=== PATIENT | female | born 1995 | race American Indian/Alaskan Native ===

== ENCOUNTER 2017-09-18 15:59 | Emergency (ER) | payer SELFPAY ==
[2017-09-18 18:13] LABS: Bilirubin,Urine NEG (Negative); Blood,Urine SM (Negative); Color,Urine Yellow (Yellow); HCG Qualitative,Urine Negative (Negative); Mucus,Urine 1+ /HPF; Protein,Urine <15 mg/dL mg/dL (Negative); Urobilinogen,Urine < 2.0 mg/dL (<2.0)
[2017-09-18] MEDS ORDERED: TYLENOL PO ONE (20:47)
[2017-09-18] MEDS ORDERED: MOTRIN PO ONE (20:47)
[2017-09-18 21:12] LABS: Alanine Aminotransferase 19 units/L (7-56); Albumin 4.9 g/dL (3.9-5); BUN/Creatinine Ratio 11; Blood Urea Nitrogen 11 mg/dL (7-17); Calcium 9.4 mg/dL (8.4-10.2); Hemolysis Index 10
--- NOTE | 2017-09-18 21:19 | Emergency Department Report ---
ED General Adult HPI - General Chief complaint: Weakness Stated complaint: BAD HEADACHES/NO ENERGY Time Seen by Provider: 09/18/17 20:38 Source: patient Mode of arrival: Ambulatory Limitations: No Limitations - History of Present Illness Initial comments: For the past 3 months, pt has been feeling fatigued with intermittent progressive onset, frontal migraines. Has been out of her thyroid medicine 2/2 loss of insurance for the past 3 months. She has light/sound sensitivity with her migraine. This episode began 3 days ago. Hasn't taken anything for her h/a. Tactile fevers/chills. - Related Data Previous Rx's Medication Instructions Recorded Last Taken Type Levothyroxine [Synthroid] 25 mcg PO QAM #30 tablet 09/18/17 Unknown Rx Allergies Allergy/AdvReac Type Severity Reaction Status Date / Time No Known Allergies Allergy Verified 09/18/17 16:46 ED Review of Systems ROS: Stated complaint: BAD HEADACHES/NO ENERGY Other details as noted in HPI Comment: All other systems reviewed and negative Constitutional: chills, fever, malaise Gastrointestinal: nausea Musculoskeletal: myalgia Neurological: headache ED Past Medical Hx - Past Medical History Previous Medical History?: Yes - Surgical History Past Surgical History?: Yes Additional Surgical History: thryroidectomy - Social History Smoking Status: Current Every Day Smoker Substance Use Type: None - Medications Home Medications: Home Medications Medication Instructions Recorded Confirmed Last Taken Type Levothyroxine [Synthroid] 25 mcg PO QAM #30 tablet 09/18/17 Unknown Rx ED Physical Exam - General Limitations: No Limitations General appearance: alert, in no apparent distress - Head Head exam: Present: atraumatic, normocephalic - Eye Eye exam: Present: normal appearance - ENT ENT exam: Present: normal orophraynx, mucous membranes moist - Neck Neck exam: Present: normal inspection - Respiratory Respiratory exam: Present: normal lung sounds bilaterally. Absent: respiratory distress - Cardiovascular Cardiovascular Exam: Present: regular rate, normal rhythm. Absent: systolic murmur, diastolic murmur, rubs, gallop - GI/Abdominal GI/Abdominal exam: Present: soft, normal bowel sounds. Absent: distended, tenderness, guarding, rebound - Extremities Exam Extremities exam: Present: normal inspection - Back Exam Back exam: Present: normal inspection - Neurological Exam Neurological exam: Present: alert, oriented X3, CN II-XII intact, normal gait. Absent: motor sensory deficit - Psychiatric Psychiatric exam: Present: normal affect, normal mood - Skin Skin exam: Present: warm, dry, intact, normal color. Absent: rash ED Course Vital Signs 09/18/17 09/18/17 09/18/17 16:40 20:30 20:55 Temperature 99.8 F H 98.2 F Pulse Rate 99 H 82 Respiratory 18 11 L 18 Rate Blood Pressure 127/84 121/75 O2 Sat by Pulse 105 H Oximetry 09/18/17 21:55 Temperature Pulse Rate Respiratory 16 Rate Blood Pressure O2 Sat by Pulse Oximetry - Reevaluation(s) Reevaluation #1: h/a improved on recheck. High TSH with a low free t4. Pt has symptomatic hypothyroidism, but is not in crisis. Will restart her home synthroid, 25 mcg daily. She will follow up with the [facility] for further management of her primary hypothryoidism. 09/18/17 22:45 09/18/17 22:49 ED Medical Decision Making - Lab Data Result diagrams: 09/18/17 20:47 - Medical Decision Making 22 yo female with pmhx thryoidectomy, noncomplaint with thyroid meds p/w generalized symptoms and h/a. VSS. Pt is well appearing. No focal neurodeficit. Low suspicion for CVA event. - Differential Diagnosis hypothyroid, tension vs migraine h/a, ICH, meningitis Critical care attestation.: If time is entered above; I have spent that time in minutes in the direct care of this critically ill patient, excluding procedure time. ED Disposition Clinical Impression: Primary hypothyroidism, Headache Disposition: - TO HOME OR SELFCARE Is pt being admited?: No Does the pt Need Aspirin: No Condition: Stable Instructions: Hypothyroidism (ED) Additional Instructions: Please take your synthroid as prescribed. Follow up with the [facility] in the next 1-2 weeks for further management of your hypothryoidism. Take 800 mg motrin and/or 975 mg tylenol every 6 hours as needed for your headache. Prescriptions: Levothyroxine [Synthroid] 25 mcg PO QAM #30 tablet Referrals: PRIMARY CARE, [Primary Care Provider] - 3-5 Days [facility] [Outside] - 3-5 Days
[2017-09-18] MEDS ORDERED: ZOFRAN ODT PO ONE (21:20)
[2017-09-18] MEDS ORDERED: K-DUR PO ONE (21:20)
[2017-09-18] MEDS ORDERED: SYNTHROID PO ONE (22:12)
[2017-09-18 23:12] VITALS: BP 97/53
== END 2017-09-18 23:20 | disposition home or self-care (01) ==
LOC: ED 15:59
DX: E03.8 Other specified hypothyroidism (principal); G43.909 Migraine, unspecified, not intractable, without status migrainosus; F17.200 Nicotine dependence, unspecified, uncomplicated; Z90.89 Acquired absence of other organs
CPT/HCPCS: 36415; 80053; 81001; 81025; 84439; 84443; 99283; Q0162

== ENCOUNTER 2018-12-12 16:56 | Emergency (ER) | payer SELFPAY ==
[2018-12-12 17:09] VITALS: BP 118/55
--- NOTE | 2018-12-12 18:49 | Emergency Department Report ---
ED General Adult HPI - General Chief complaint: Abdominal Pain Stated complaint: COLD SORE, ABDOMINAL PAIN Time Seen by Provider: 12/12/18 18:17 Source: patient Mode of arrival: Ambulatory Limitations: No Limitations - History of Present Illness Initial comments: She denies abdominal pain. States she is only here to be seen for her cold sore. 23-year-old female presents to ED with cold sore to right upper lip 1 week. Patient states she has tried Abreva and tea tree oil however the lesion is still there. Patient states this is her first cold sore. -: week(s) (1) Location: mouth Quality: burning Consistency: constant Improves with: none Worsens with: none Associated Symptoms: denies: fever/chills, nausea/vomiting - Related Data Previous Rx's Medication Instructions Recorded Last Taken Type Levothyroxine [Synthroid] 25 mcg PO QAM #30 tablet 09/18/17 Unknown Rx valACYclovir [Valtrex] 500 mg PO QDAY #30 tab 12/12/18 Unknown Rx Allergies Allergy/AdvReac Type Severity Reaction Status Date / Time No Known Allergies Allergy Verified 09/18/17 16:46 ED Review of Systems ROS: Stated complaint: COLD SORE, ABDOMINAL PAIN Other details as noted in HPI Comment: All other systems reviewed and negative Constitutional: denies: chills, fever ENT: other (reports cold sore on mouth) Gastrointestinal: denies: abdominal pain, nausea, vomiting ED Past Medical Hx - Past Medical History Previous Medical History?: No - Surgical History Past Surgical History?: Yes Additional Surgical History: thryroidectomy - Social History Smoking Status: Current Every Day Smoker Substance Use Type: Alcohol, Marijuana - Medications Home Medications: Home Medications Medication Instructions Recorded Confirmed Last Taken Type Levothyroxine [Synthroid] 25 mcg PO QAM #30 tablet 09/18/17 Unknown Rx valACYclovir [Valtrex] 500 mg PO QDAY #30 tab 12/12/18 Unknown Rx ED Physical Exam - General Limitations: No Limitations General appearance: alert, in no apparent distress - Head Head exam: Present: atraumatic, normocephalic - Eye Eye exam: Present: normal appearance - ENT ENT exam: Present: mucous membranes moist - Neck Neck exam: Present: normal inspection - Respiratory Respiratory exam: Present: normal lung sounds bilaterally. Absent: respiratory distress - Cardiovascular Cardiovascular Exam: Present: regular rate, normal rhythm - GI/Abdominal GI/Abdominal exam: Present: soft. Absent: distended, tenderness - Extremities Exam Extremities exam: Present: normal inspection - Neurological Exam Neurological exam: Present: alert, oriented X3 - Psychiatric Psychiatric exam: Present: normal affect, normal mood - Skin Skin exam: Present: warm, dry, intact, normal color, other (cold sore on right upper lip, appears to be healing and scabbing over) ED Course Vital Signs 12/12/18 17:06 Temperature 99.5 F Pulse Rate 71 Respiratory 18 Rate Blood Pressure 118/55 O2 Sat by Pulse 100 Oximetry ED Medical Decision Making - Differential Diagnosis cold sore Critical care attestation.: If time is entered above; I have spent that time in minutes in the direct care of this critically ill patient, excluding procedure time. ED Disposition Clinical Impression: Cold sore Disposition: DC-01 TO HOME OR SELFCARE Is pt being admited?: No Condition: Stable Instructions: Oral Herpes Simplex Virus Infections (ED) Prescriptions: valACYclovir [Valtrex] 500 mg PO QDAY #30 tab Referrals: [facility] [Provider Group] - 3-5 Days [facility] [Outside] - 3-5 Days Time of Disposition: 18:48
== END 2018-12-12 19:04 | disposition home or self-care (01) ==
LOC: ED 16:56
DX: B00.1 Herpesviral vesicular dermatitis (principal); F17.200 Nicotine dependence, unspecified, uncomplicated; F12.10 Cannabis abuse, uncomplicated; E89.0 Postprocedural hypothyroidism; Z79.899 Other long term (current) drug therapy
CPT/HCPCS: 99282

== ENCOUNTER 2019-03-14 19:14 | Emergency (ER) | payer SELFPAY ==
--- NOTE | 2019-03-14 19:34 | Emergency Department Report ---
Blank Doc - Documentation Documentation: 23-year-old female that presents with n/v and abdominal pain. This initial assessment/diagnostic orders/clinical plan/treatment(s) is/are subject to change based on patient's health status, clinical progression and re- assessment by fellow clinical providers in the ED. Further treatment and workup at subsequent clinical providers discretion. Patient/guardians urged not to elope from the ED as their condition may be serious if not clinically assessed and managed. Initial orders include: 1- Patient sent to [facility] for further evaluation and treatment 2- labs 3- UA
[2019-03-14 20:26] LABS: Basophils # (Auto) 0.1 K/mm3 (0.0-0.1); Eosinophils % (Auto) 0.6 % (0.0-4.3); Hematocrit 37.1 % (30.3-42.9); Hemoglobin 12.8 gm/dl (10.1-14.3); Lymphocytes # (Auto) 2.2 K/mm3 (1.2-5.4); Lymphocytes % (Auto) 27.8 % (13.4-35.0); Mean Corpuscular HGB Conc 35 % (30-34); Mean Corpuscular Volume 100 fl (79-97); Monocytes # (Auto) 0.6 K/mm3 (0.0-0.8); Monocytes % (Auto) 7.5 % (0.0-7.3); Platelet Count 323 K/mm3 (140-440); Red Blood Count 3.69 M/mm3 (3.65-5.03); Red Cell Distribution Width 15.2 % (13.2-15.2)
[2019-03-14 20:44] LABS: Bilirubin,Urine NEG (Negative); Blood,Urine SM (Negative); Color,Urine Yellow (Yellow); Mucus,Urine 3+ /HPF; Urobilinogen,Urine < 2.0 mg/dL (<2.0)
[2019-03-14 20:55] LABS: BUN/Creatinine Ratio 7; Blood Urea Nitrogen 6 mg/dL (7-17); Calcium 9.3 mg/dL (8.4-10.2); Hemolysis Index 100
[2019-03-14 21:05] LABS: Alanine Aminotransferase 11 units/L (7-56)
[2019-03-15] MEDS ORDERED: ONDANSETRON 4 MG/2 ML INJ IV STA (01:47)
[2019-03-15] MEDS ORDERED: SODIUM CHLORIDE 0.9% 1000 ML 1,000 ML IV ONE (01:47)
[2019-03-15] MEDS ORDERED: HYOSCYAMINE SUBL 0.125 MG TAB SL ONE (01:47)
[2019-03-15] MEDS ORDERED: METOCLOPRAMIDE 10 MG/2 ML INJ IV STA (04:17)
[2019-03-15] MEDS ORDERED: diphenhydrAMINE 50 MG/ML VIAL IV STA (04:17)
[2019-03-15 05:52] VITALS: BP 111/75
== END 2019-03-15 05:52 | disposition home or self-care (01) ==
LOC: ED 19:14
DX: R10.9 Unspecified abdominal pain (principal); R11.2 Nausea with vomiting, unspecified
CPT/HCPCS: 36415; 80053; 81001; 83690; 84703; 85025; 96361; 96374; 96375; 99283; J1200; J2405; J2765; J7030

== ENCOUNTER 2020-10-06 14:30 | Emergency (ER) | payer OTHER ==
[2020-10-06 16:11] LABS: Basophils % (Auto) 0.5 % (0.0-1.8); Eosinophils % (Auto) 0.1 % (0.0-4.3); Hematocrit 40.2 % (30.3-42.9); Hemoglobin 13.8 gm/dl (10.1-14.3); Lymphocytes % (Auto) 34.3 % (13.4-35.0); Mean Corpuscular HGB Conc 34 % (30-34); Mean Corpuscular Volume 96 fl (79-97); Monocytes # (Auto) 0.2 K/mm3 (0.0-0.8); Monocytes % (Auto) 8.3 % (0.0-7.3); Platelet Count 216 K/mm3 (140-440); Red Cell Distribution Width 13.7 % (13.2-15.2)
[2020-10-06 16:19] LABS: Bilirubin,Urine MOD (Negative); Blood,Urine NEG (Negative); Color,Urine Amber (Yellow); Mucus,Urine 3+ /HPF
[2020-10-06 16:20] LABS: Protein,Urine >500 mg/dL (Negative)
[2020-10-06 16:54] LABS: Alanine Aminotransferase 33 units/L (7-56); Albumin 4.3 g/dL (3.9-5); BUN/Creatinine Ratio 7; Blood Urea Nitrogen 6 mg/dL (7-17); Calcium 8.7 mg/dL (8.4-10.2); Hemolysis Index 5
--- NOTE | 2020-10-06 17:30 | Emergency Department Report ---
ED General Adult HPI - General Chief complaint: Abdominal Pain Stated complaint: AB PAIN, NUMBNESS,NAUSEA Time Seen by Provider: 10/06/20 16:41 Source: patient Mode of arrival: Ambulatory Limitations: No Limitations - History of Present Illness Initial comments: Is a pleasant 25-year-old female who presents the emergency department chief complaint of cough, congestion, nausea, vomiting, diarrhea, generalized body aches, loss of taste and smell has been present over the past week. She is unsure of any sick contacts. She had negative COVID-19 vaccine. She denies any known past medical history other than hypothyroidism which she takes levothyroxine 150 mcg for. She denies any known allergies to medications. - Related Data Previous Rx's Medication Instructions Recorded Last Taken Type Levothyroxine [Synthroid] 25 mcg PO QAM #30 tablet 09/18/17 Unknown Rx valACYclovir [Valtrex] 500 mg PO QDAY #30 tab 12/12/18 Unknown Rx Ciprofloxacin HCl [Ciprofloxacin 500 mg PO Q12HR #20 tab 03/15/19 Unknown Rx TAB] Hyoscyamine Subl [Levsin Sl 0.125 0.125 mg SL Q4HR PRN #20 tablet 03/15/19 Unkn own Rx TAB] Ondansetron [Zofran ODT TAB] 8 mg PO Q8HR #14 tab.rapdis 03/15/19 Unknown Rx metroNIDAZOLE [Flagyl] 500 mg PO Q12HR #14 tab 03/15/19 Unknown Rx Albuterol Sulfate [Proventil Hfa] 6.7 gm IH Q4HR #1 hfa.aer.ad 10/06/20 Unknown Rx DOXYCYCLINE Hyclate [Vibramycin 100 mg PO Q12HR #20 capsule 10/06/20 Unknown Rx CAP] methylPREDNISolone [Medrol 4MG 4 mg PO ONCE #1 tab.ds.pk 10/06/20 Unknown Rx DOSEPAK (21 tabs)] Allergies Allergy/AdvReac Type Severity Reaction Status Date / Time No Known Allergies Allergy Verified 09/18/17 16:46 ED Review of Systems ROS: Stated complaint: AB PAIN, NUMBNESS,NAUSEA Other details as noted in HPI Comment: All other systems reviewed and negative Constitutional: fever, malaise. denies: chills Eyes: denies: eye pain, eye discharge, vision change ENT: denies: ear pain, throat pain Respiratory: see HPI, cough. denies: shortness of breath, wheezing Cardiovascular: denies: chest pain, palpitations Endocrine: no symptoms reported Gastrointestinal: as per HPI, nausea, vomiting, diarrhea. denies: abdominal pain Genitourinary: denies: urgency, dysuria, discharge Musculoskeletal: as per HPI, myalgia. denies: back pain, joint swelling, arthralgia Skin: denies: rash, lesions Neurological: denies: headache, weakness, paresthesias Psychiatric: denies: anxiety, depression Hematological/Lymphatic: denies: easy bleeding, easy bruising ED Past Medical Hx - Past Medical History Previous Medical History?: Yes Additional medical history: HYPERTHYROIDISM - Surgical History Past Surgical History?: Yes Additional Surgical History: thryroidectomy - Social History Smoking Status: Never Smoker Substance Use Type: None - Medications Home Medications: Home Medications Medication Instructions Recorded Confirmed Last Taken Type Levothyroxine [Synthroid] 25 mcg PO QAM #30 tablet 09/18/17 Unknown Rx valACYclovir [Valtrex] 500 mg PO QDAY #30 tab 12/12/18 Unknown Rx Ciprofloxacin HCl [Ciprofloxacin 500 mg PO Q12HR #20 tab 03/15/19 Unknown Rx TAB] Hyoscyamine Subl [Levsin Sl 0.125 0.125 mg SL Q4HR PRN #20 tablet 03/15/19 Un known Rx TAB] Ondansetron [Zofran ODT TAB] 8 mg PO Q8HR #14 tab.rapdis 03/15/19 Unknown Rx metroNIDAZOLE [Flagyl] 500 mg PO Q12HR #14 tab 03/15/19 Unknown Rx Albuterol Sulfate [Proventil Hfa] 6.7 gm IH Q4HR #1 hfa.aer.ad 10/06/20 Unknown Rx DOXYCYCLINE Hyclate [Vibramycin 100 mg PO Q12HR #20 capsule 10/06/20 Unknown Rx CAP] methylPREDNISolone [Medrol 4MG 4 mg PO ONCE #1 tab.ds.pk 10/06/20 Unknown Rx DOSEPAK (21 tabs)] ED Physical Exam - General Limitations: No Limitations General appearance: alert, in no apparent distress - Head Head exam: Present: atraumatic, normocephalic - Eye Eye exam: Present: normal appearance, PERRL, EOMI Pupils: Present: normal accommodation - ENT ENT exam: Present: normal exam, normal orophraynx, mucous membranes moist - Neck Neck exam: Present: normal inspection, full ROM. Absent: tenderness, meningismus - Respiratory Respiratory exam: Present: normal lung sounds bilaterally. Absent: respiratory distress, wheezes, rales, rhonchi, stridor - Cardiovascular Cardiovascular Exam: Present: regular rate, normal rhythm, normal heart sounds. Absent: systolic murmur, diastolic murmur, rubs, gallop - GI/Abdominal GI/Abdominal exam: Present: soft, normal bowel sounds. Absent: distended, tenderness, guarding, rebound, rigid - Extremities Exam Extremities exam: Present: normal inspection, full ROM, normal capillary refill. Absent: tenderness, calf tenderness - Back Exam Back exam: Present: normal inspection, full ROM. Absent: tenderness, CVA tenderness (R), CVA tenderness (L) - Neurological Exam Neurological exam: Present: alert, oriented X3, normal gait - Psychiatric Psychiatric exam: Present: normal affect, normal mood - Skin Skin exam: Present: warm, dry, intact, normal color. Absent: rash ED Medical Decision Making - Lab Data Result diagrams: 10/06/20 15:34 10/06/20 15:34 Lab Results 10/06/20 10/06/20 10/06/20 Range/Units 15:34 15:34 15:40 WBC 2.9 L (4.5-11.0) K/mm3 RBC 4.20 (3.65-5.03) M/mm3 Hgb 13.8 (10.1-14.3) gm/dl Hct 40.2 (30.3-42.9) % MCV 96 (79-97) fl MCH 33 H (28-32) pg MCHC 34 (30-34) % RDW 13.7 (13.2-15.2) % Plt Count 216 (140-440) K/mm3 Lymph % (Auto) 34.3 (13.4-35.0) % Wright % (Auto) 8.3 H (0.0-7.3) % Eos % (Auto) 0.1 (0.0-4.3) % Baso % (Auto) 0.5 (0.0-1.8) % Lymph # (Auto) 1.0 L (1.2-5.4) K/mm3 Wright # (Auto) 0.2 (0.0-0.8) K/mm3 Eos # (Auto) 0.0 (0.0-0.4) K/mm3 Baso # (Auto) 0.0 (0.0-0.1) K/mm3 Seg Neutrophils % 56.8 (40.0-70.0) % Seg Neutrophils # 1.6 L (1.8-7.7) K/mm3 Sodium 133 L (137-145) mmol/L Potassium 3.9 (3.6-5.0) mmol/L Chloride 98.9 (98-107) mmol/L Carbon Dioxide 23 (22-30) mmol/L Anion Gap 15 mmol/L BUN 6 L (7-17) mg/dL Creatinine 0.9 (0.6-1.2) mg/dL Estimated GFR > 60 ml/min BUN/Creatinine Ratio 7 % Glucose 112 H (65-100) mg/dL Calcium 8.7 (8.4-10.2) mg/dL Total Bilirubin 0.50 (0.1-1.2) mg/dL AST 43 H (5-40) units/L ALT 33 (7-56) units/L Alkaline Phosphatase 50 (35-129) units/L Total Protein 8.6 H (6.3-8.2) g/dL Albumin 4.3 (3.9-5) g/dL Albumin/Globulin Ratio 1.0 % Urine Color [place] (Yellow) Urine Turbidity Slightly-cloudy (Clear) Urine pH 5.0 (5.0-7.0) Ur Specific [place] 1.032 H (1.003-1.030) Urine Protein >500 (Negative) mg/dL Urine Glucose (UA) Neg (Negative) mg/dL Urine Ketones Neg (Negative) mg/dL Urine Blood Neg (Negative) Urine Nitrite Neg (Negative) Urine Bilirubin Mod (Negative) Urine Ictotest Not Reportable Urine Urobilinogen 4.0 (<2.0) mg/dL Ur Leukocyte Esterase Neg (Negative) Urine WBC (Auto) 2.0 (0.0-6.0) /HPF Urine RBC (Auto) 5.0 (0.0-6.0) /HPF U Epithel Cells (Auto) 17.0 H (0-13.0) /HPF Urine Mucus 3+ /HPF - Radiology Data Radiology results: report reviewed, image reviewed Bilateral lower lung groundglass opacities suspicious for atypical pneumonia per radiology review - Medical Decision Making Patient nontoxic in no acute distress. Symptoms are concerning for an acute viral process such as COVID-19. Chest x-ray was concerning for bilateral Covid pneumonia. The lab work was relatively normal. Patient will be given doxycycline, steroids and inhalers and recommend outpatient follow-up. Recommend she continue to follow her pulse ox which was normal here in the emergency department but if she is hypoxic below 90% she needs to return the emerge department immediately. She verbalized understanding instructions and all of her questions were answered. She also understood that she need to stop due to social distancing for 14 days from the onset of her symptoms - Differential Diagnosis COVID-19, viral syndrome, influenza, pneumonia Critical care attestation.: If time is entered above; I have spent that time in minutes in the direct care of this critically ill patient, excluding procedure time. ED Disposition Clinical Impression: Suspected COVID-19 virus infection, Pneumonia due to COVID-19 virus, Acute viral syndrome Disposition: 01 HOME / SELF CARE / HOMELESS Is pt being admited?: No Condition: Stable Instructions: Abdominal Pain (ED), Bacterial Pneumonia (ED), Viral Respiratory Infection, [id number] Prescriptions: methylPREDNISolone [Medrol 4MG DOSEPAK (21 tabs)] 4 mg PO ONCE #1 tab.ds.pk Albuterol Sulfate [Proventil Hfa] 6.7 gm IH Q4HR #1 hfa.aer.ad DOXYCYCLINE Hyclate [Vibramycin CAP] 100 mg PO Q12HR #20 capsule Referrals: PRIMARY CAREMD [Primary Care Provider] - 3-5 Days [facility] [Provider Group] - 3-5 Days Forms: Work/School Release Form(ED) Time of Disposition: 17:52
--- NOTE | 2020-10-06 17:30 | XRay Report ---
CHEST 2 VIEWS INDICATION / CLINICAL INFORMATION: Cough, fever and chills. Loss of taste and smell for one week. COMPARISON: None available. FINDINGS: SUPPORT DEVICES: None. HEART / MEDIASTINUM: The heart size and pulmonary vasculature are normal. LUNGS / PLEURA: There are [id number] patchy parenchymal opacities in the right mid to lower noble g and in the left lower lung. No pleural effusion. No pneumothorax. ADDITIONAL FINDINGS: No significant additional findings. IMPRESSION: Patchy parenchymal opacities in both lower lung zones and in the right midlung are nonspe cific, but likely inflammatory. Atypical causes of pneumonia, especially viral pneumonia, should be c onsidered. Signer Name: Flo Restrepo MD Signed: 10/06/2020 5:25 PM Workstation Name: [id number]
== END 2020-10-06 18:13 | disposition home or self-care (01) ==
LOC: ED 14:30
DX: B34.9 Viral infection, unspecified (principal); J12.89 Other viral pneumonia; Z20.822 Contact with and (suspected) exposure to COVID-19; E05.90 Thyrotoxicosis, unspecified without thyrotoxic crisis or storm; Z98.890 Other specified postprocedural states
CPT/HCPCS: 36415; 71046; 80053; 81001; 85025; 99283